=== PATIENT | female | born 1990 | race Caucasian/White ===

== ENCOUNTER 2016-08-25 12:36 | Emergency (ER) | payer OTHER ==
[2016-08-25 13:20] VITALS: BP 147/88; TEMP 98.2; O2SAT 98
[2016-08-25] MEDS ORDERED: LIDOCAINE 1% 10 ML VIAL INJ ONE (13:32)
[2016-08-25] MEDS ORDERED: IODOFORM 1/4 INCH 1 EA BTTL TOP ONE (13:33)
--- NOTE | 2016-08-25 13:48 | ED.PDOC ---
History of Present Illness - General Chief Complaint: Problem Stated Complaint: swollen cyst Time Seen by Provider: 08/25/16 13:29 Source: patient Exam Limitations: no limitations - History of Present Illness Initial Comments: the patient is a 26-year-old female presenting to the emergency room secondary to a recurrent left infected Bartholin's gland. She reports symptoms developing over the last 3-5 days. No definite fevers but she has had some fatigue. No drainage. She has had it opened up times in the past. Timing/Duration: 1 week Severity: moderate Improving Factors: nothing Worsening Factors: nothing Associated Symptoms: malaise Allergies/Adverse Reactions: Allergies NO KNOWN ALLERGY Allergy (Verified 06/18/16 19:56) Home Medications: Ambulatory Orders Sulfamethoxazole-Trimethoprim [Bactrim Ds 800-160 mg] 1 tab PO BID #20 tab 08/25 Review of Systems - Review of Systems Constitutional: States: malaise EENTM: States: no symptoms reported Respiratory: States: no symptoms reported Cardiology: States: no symptoms reported Gastrointestinal/Abdominal: States: no symptoms reported Genitourinary: States: see HPI Musculoskeletal: States: no symptoms reported Skin: States: see HPI Neurological: States: no symptoms reported Endocrine: States: no symptoms reported All other Systems: No Change from Baseline Past Medical History (General) - Patient Medical History Hx Seizures: No Hx Stroke: No Hx Dementia: No Hx Asthma: No Hx of COPD: No Hx Cardiac Disorders: No Hx Congestive Heart Failure: No Hx Pacemaker: No Hx Hypertension: No Hx Thyroid Disease: No Hx Diabetes: No Hx Gastroesophageal Reflux: No Hx Renal Disease: No Hx Cancer: No Hx of HIV: No Hx Hepatitis C: No Hx MRSA: No - Vaccination History Hx Tetanus, Diphtheria Vaccination: No Hx Influenza Vaccination: No - Social History Hx Tobacco Use: Yes Hx Alcohol Use: Yes Hx Physical Abuse: No Hx Emotional Abuse: No Hx Suspected Abuse: No - Female History Patient is a Female of Child Bearing Age (10 -59 yrs old): Yes Patient : No Family Medical History - Family History Mother Family History: Unknown Physical Exam - Physical Exam General Appearance: Alert, Anxious Eye Exam: bilateral normal Ears, Nose, Throat: normal ENT inspection, normal pharynx Neck: full range of motion, supple Respiratory: chest non-tender, lungs clear, normal breath sounds, no respiratory distress, no accessory muscle use Cardiovascular/Chest: normal peripheral pulses, regular rate, rhythm, no edema Peripheral Pulses: radial,right: 2+, radial,left: 2+ Gastrointestinal/Abdominal: normal bowel sounds, non tender, soft Rectal Exam: deferred, other - infected left Bartholin's gland obvious. Area of induration extends posteriorly towards the anus approximately 1 inch subcutaneously. No drainage. Back Exam: normal inspection Extremity: normal range of motion, non-tender, normal inspection, no pedal edema , normal capillary refill Neurologic: alert, normal mood/affect, oriented x 3 Skin Exam: normal color - with the exception as above Comments: Vital Signs - 24 hr 08/25/16 13:14 Temperature 98.2 F Pulse Rate [ 86 Left Brachial] Respiratory 16 Rate Blood Pressure 147/88 [Left Arm] O2 Sat by Pulse 98 Oximetry Progress - Progress Progress: 08/25/16 13:48 the patient is a 26-year-old female with an infected left Bartholin's gland that has had previous infections and incision and drainages performed in the past. She does have fairly extensive scar tissue. Risk and benefits were explained prior to incision and drainage. Patient agrees to proceed. Alcohol swab used for cleaning. 1% lidocaine without epinephrine was used 2 cc for local anesthetic. A 15 blade scalpel used to make a 1 cm incision into the head of the abscess. Approximately 1-2 cc of pus were obtained. Culture was obtained. Small area of tissue was excised over the roof to allow for continued drainage. Wound is not large enough for packing at this time. Bactrim will be used as an outpatient. She needs to return to the emergency room for any worsening. She needs to follow-up with her laundry helper in one month to have the area completely excised to prevent further infections in the future. Departure - Departure Clinical Impression: Bartholin's gland infection Disposition: Discharge to Home or Self Care Condition: Fair Departure Forms: ED Discharge - Pt. Copy, Patient Portal Self Enrollment Instructions: DI for Bartholin Gland Cyst Diet: regular diet Activity: increase activity as tolerated Prescriptions: Sulfamethoxazole-Trimethoprim [Bactrim Ds 800-160 mg] 1 tab PO BID #20 tab Home Medications: Ambulatory Orders Sulfamethoxazole-Trimethoprim [Bactrim Ds 800-160 mg] 1 tab PO BID #20 tab 08/25 Additional Instructions: the patient is a 26-year-old female with an infected left Bartholin's gland that has had previous infections and incision and drainages performed in the past. She does have fairly extensive scar tissue. Risk and benefits were explained prior to incision and drainage. Patient agrees to proceed. Alcohol swab used for cleaning. 1% lidocaine without epinephrine was used 2 cc for local anesthetic. A 15 blade scalpel used to make a 1 cm incision into the head of the abscess. Approximately 1-2 cc of pus were obtained. Culture was obtained. Small area of tissue was excised over the roof to allow for continued drainage. Wound is not large enough for packing at this time. Bactrim will be used as an outpatient. She needs to return to the emergency room for any worsening. She needs to follow-up with her laundry helper in one month to have the area completely excised to prevent further infections in the future.
== END 2016-08-25 13:57 | disposition home or self-care (01) ==
LOC: ER 12:36
DX: N75.8 Other diseases of Bartholin's gland (principal); Z87.891 Personal history of nicotine dependence

== ENCOUNTER 2016-08-29 11:40 | Emergency (ER) | payer OTHER ==
[2016-08-29] MEDS ORDERED: LIDOCAINE VIS-MYLANTA 30 ML UD PO ONE (12:00)
[2016-08-29] MEDS ORDERED: SUCRALFATE 1 GM TAB PO ONE (12:00)
[2016-08-29 12:01] VITALS: TEMP 98.2; O2SAT 99
--- NOTE | 2016-08-29 13:12 | ED.PDOC ---
History of Present Illness - General Chief Complaint: Abdominal Pain Time Seen by Provider: 08/29/16 11:43 Source: patient Exam Limitations: no limitations - History of Present Illness Initial Comments: the patient is a 26-year-old female presenting to the emergency room secondary to abdominal pain for 24-48 hours. She has had some mild nausea but no vomiting. No constipation and no diarrhea. Discomfort is primarily epigastric. She has been on Bactrim for an infected Bartholin's gland that has undergone drainage. Pain is cramping and burning in nature. No difficulty with ambulation. She is tolerating oral intake okay but the abdominal pain is present with or without eating. Movement does not seem to make things worse. No back pain or urinary symptoms and her genital infection is clearing. Timing/Duration: 24 hours Severity: moderate Improving Factors: nothing Worsening Factors: nothing Associated Symptoms: loss of appetite, malaise Allergies/Adverse Reactions: Allergies NO KNOWN ALLERGY Allergy (Verified 06/18/16 19:56) Home Medications: Ambulatory Orders Sulfamethoxazole-Trimethoprim [Bactrim Ds 800-160 mg] 1 tab PO BID #20 tab 08/25 Review of Systems - Review of Systems Constitutional: States: malaise EENTM: States: no symptoms reported Respiratory: States: no symptoms reported Cardiology: States: no symptoms reported Gastrointestinal/Abdominal: States: see HPI Genitourinary: States: no symptoms reported Musculoskeletal: States: no symptoms reported Skin: States: no symptoms reported All other Systems: No Change from Baseline Past Medical History (General) - Patient Medical History Hx Seizures: No Hx Stroke: No Hx Dementia: No Hx Asthma: No Hx of COPD: No Hx Cardiac Disorders: No Hx Congestive Heart Failure: No Hx Pacemaker: No Hx Hypertension: No Hx Thyroid Disease: No Hx Diabetes: No Hx Gastroesophageal Reflux: No Hx Renal Disease: No Hx Cancer: No Hx of HIV: No Hx Hepatitis C: No Hx MRSA: No Surgical History: no surgical history - Vaccination History Hx Tetanus, Diphtheria Vaccination: No Hx Influenza Vaccination: No - Social History Hx Tobacco Use: Yes Hx Alcohol Use: Yes Hx Physical Abuse: No Hx Emotional Abuse: No Hx Suspected Abuse: No - Female History Patient is a Female of Child Bearing Age (10 -59 yrs old): Yes Hx Last Menstrual Period: 08/22/16 Patient : No Family Medical History - Family History Mother Family History: Unknown Physical Exam - Physical Exam General Appearance: Alert, Anxious, Comfortable, No apparent distress Eye Exam: bilateral normal Ears, Nose, Throat: normal ENT inspection, normal pharynx Neck: full range of motion, supple Respiratory: chest non-tender, lungs clear, normal breath sounds, no respiratory distress, no accessory muscle use Cardiovascular/Chest: normal peripheral pulses, regular rate, rhythm, no edema Peripheral Pulses: radial,right: 2+, radial,left: 2+ Gastrointestinal/Abdominal: soft, other - epigastric discomfort palpation but nopalpable masses. Rectal Exam: deferred Back Exam: normal inspection Extremity: normal range of motion, non-tender, normal inspection, no pedal edema , normal capillary refill Neurologic: alert, normal mood/affect, oriented x 3 Skin Exam: normal color Comments: Vital Signs - 24 hr 08/29/16 11:54 Temperature 98.2 F Pulse Rate [ 118 H LEFT HAND] Respiratory 20 Rate Blood Pressure 121/88 [LA] O2 Sat by Pulse 99 Oximetry Progress - Progress Progress: 08/29/16 13:13 the patient is a 26-year-old female presenting with symptoms consistent with gastritis likely flared by the Bactrim use. She can take the medication with food. additionally she can either use Pepcid or Zantac twice daily for the next 2 weeks along with Maalox as needed to help reduce symptoms. A GI cocktail did significantly help her symptoms here today. She needs to keep well-hydrated. ER warnings were given for any acute worsening. Follow up with primary care doctor early next week. Departure - Departure Clinical Impression: Gastritis Disposition: Discharge to Home or Self Care Condition: Fair Departure Forms: ED Discharge - Pt. Copy, Patient Portal Self Enrollment Instructions: DI for Abdominal Pain-Adult Diet: bland diet Activity: increase activity as tolerated Home Medications: Ambulatory Orders Sulfamethoxazole-Trimethoprim [Bactrim Ds 800-160 mg] 1 tab PO BID #20 tab 08/25 Additional Instructions: the patient is a 26-year-old female presenting with symptoms consistent with gastritis likely flared by the Bactrim use. She can take the medication with food. additionally she can either use Pepcid or Zantac twice daily for the next 2 weeks along with Maalox as needed to help reduce symptoms. A GI cocktail did significantly help her symptoms here today. She needs to keep well-hydrated. ER warnings were given for any acute worsening. Follow up with primary care doctor early next week.
[2016-08-29 13:42] VITALS: BP 114/75
== END 2016-08-29 13:25 | disposition home or self-care (01) ==
LOC: ER 11:40
DX: K29.70 Gastritis, unspecified, without bleeding (principal); Z87.891 Personal history of nicotine dependence